=== PATIENT | female | born 1955 | race Caucasian/White ===

== ENCOUNTER → 2016-07-03 | Day surgery (SDC) | payer BC ==
[~2016-07-03] MED LIST: Acetaminophen TAB* 325 MG PO PRN; Buffered Lidocaine 1% SYR 3ML* 3 ML/SYR SYRINGE INTRADERM ONE; Buffered Lidocaine 1% SYR 3ML* 3 ML/SYR SYRINGE ONE; Cyclopentolate 1% OPTH.SOL* 2 ML BTL ONE; Flurbiprofen 0.03% OPTH.SOL* 2.5 ML BTL ONE; Lidocaine 1% MPF* 2 ML VIAL ONE; Lidocaine 2% EPI 1:200000 MPF* 20 ML VIAL ONE; Midazolam* 1 MG/ML 2 ML VIAL (2 MG) ONE; Neomycin/Polymy/Dex OPTH.SUSP* MAXITROL 0.1% 5 ML ONE; Phenylephrine 2.5% OPTH.SOL* 2 ML BTL ONE; Povidone Iodine 5% OPTH* 30 ML BTL ONE; Proparacaine 0.5% OPHTH.SOL* 15 ML BTL ONE; acetaZOLAMIDE TAB* 250 MG ONE; fentaNYL* 50 MCG/ML 2 ML VIAL (100 MCG VIAL) ONE
[2016-07-03 11:24] VITALS: BP 129/67
--- NOTE | 2016-07-03 22:31 | OP ---
DATE OF OPERATION: 07/03/16 [facility] DATE OF : 51 SURGEON: Eber Mixon MD. PREOPERATIVE DIAGNOSIS: Cataract, right eye. POSTOPERATIVE DIAGNOSIS: Cataract, right eye. OPERATIVE PROCEDURE: Phacoemulsification, right eye with IOL. DESCRIPTION OF PROCEDURE: The patient was brought to the operating room after being given 1/2% Alcaine with epinephrine drops in the preoperative area. The eye was prepped and draped in the usual sterile fashion. Sterile drape and eyelid speculum were placed. Again, topical 1/2% Alcaine with epinephrine was given. A paracentesis incision was made at the 9 o'clock position with the No.75 blade. Clear cornea incision 2.2 x 2.2-mm was created at the 12 o'clock position starting at the anterior limbus using the 2.2-mm keratome. The anterior chamber was irrigated with 0.4 mL of 1% non-preservative intracameral lidocaine and filled with DisCoVisc. A capsulorrhexis was completed using the cystotome and the Utrata forceps. Hydrodissection was performed with balanced salt solution. The lens nucleus was removed with the Phacoemulsification handpiece without incident. Cortex was removed with the irrigation-aspiration handpiece. The capsular bag was re-inflated using DisCoVisc and an [id number] 25 implant was inserted with the shooter. The irrigation-aspiration handpiece was used to remove all residual DisCoVisc. The eye was refilled with balanced salt solution and the wound checked and found to be watertight. Topical Maxitrol drops were given. [id number]/[facility] #: [id number] [facility]ENTERMir[facility]
== END | disposition home or self-care (01) ==
LOC: OREAST 07:52
PROVIDERS: ATTEND Specialist
DX: H25.11 Age-related nuclear cataract, right eye (principal); H40.033 Anatomical narrow angle, bilateral; H40.053 Ocular hypertension, bilateral; H35.373 Puckering of macula, bilateral
CPT/HCPCS: 36415; 86703; 86803; A9270-GY; J2250; J3010; V2632

== ENCOUNTER → 2016-07-10 | Day surgery (SDC) | payer BC ==
[~2016-07-10] MED LIST changes: -Acetaminophen TAB* 325 MG PO PRN; -fentaNYL* 50 MCG/ML 2 ML VIAL (100 MCG VIAL) ONE
[2016-07-10 12:02] VITALS: BP 134/80
--- NOTE | 2016-07-10 13:07 | OP ---
DATE OF OPERATION: 07/10/2016. DATE OF : 1955. SURGEON: Eber Mixon M.D. PREOPERATIVE DIAGNOSIS: Cataract left eye. POSTOPERATIVE DIAGNOSIS: Cataract left eye. OPERATIVE PROCEDURE: Phacoemulsification left eye with IOL. PROCEDURE: The patient was brought to the operating room after being given 1/2% Alcaine with epinep hrine drops in the preoperative area. The eye was prepped and draped in the usual sterile fashion. Sterile drape and eyelid speculum were placed. Again, topical 1/2% Alcaine with epinephrine was gi nimesh. A paracentesis incision was made at the 3 o'clock position with the No.75 blade. Clear cornea incision 2.2 x 2.2-mm was created at the 6 o'clock position starting at the anterior limbus using t he 2.2-mm keratome. The anterior chamber was irrigated with 0.4 mL of 1% non-preservative intracame ral lidocaine and filled with DisCoVisc. A capsulorrhexis was completed using the cystotome and the Utrata forceps. Hydrodissection was performed with balanced salt solution. The lens nucleus was re moved with the Phacoemulsification handpiece without incident. Cortex was removed with the irrigati on-aspiration handpiece. The capsular bag was re-inflated using DisCoVisc and an SN60WF 24.5 implan t was inserted with the shooter. The irrigation-aspiration handpiece was used to remove all residua l DisCoVisc. The eye was refilled with balanced salt solution and the wound checked and found to be watertight. Topical Maxitrol drops were given. [id number]/[facility] #: [id number]
== END | disposition home or self-care (01) ==
LOC: OREAST 08:35
PROVIDERS: ATTEND Specialist
DX: H25.12 Age-related nuclear cataract, left eye (principal); H40.033 Anatomical narrow angle, bilateral; H40.053 Ocular hypertension, bilateral; H35.373 Puckering of macula, bilateral
CPT/HCPCS: A9270-GY; J2250; V2632